=== PATIENT | female | born 1935 | race Caucasian/White ===

== ENCOUNTER 2022-02-16 21:57 | Inpatient (IN) | payer MEDICARE ==
[~2022-02-16] VITALS: Ht 152.4 cm; Wt 54.5 kg
[2022-02-16] MEDS ORDERED: LISI40TA13 PO (22:29)
[2022-02-16] MEDS ORDERED: SIMV-42 PO (22:29)
[2022-02-16] MEDS ORDERED: CLOP75TA34 PO (22:29)
[2022-02-16] MEDS ORDERED: HYDR12.55 PO (22:29)
[2022-02-16] MEDS ORDERED: ASPI-1265 PO (22:29)
[2022-02-16] MEDS ORDERED: mag hydrox/Alum hydrox/simeth 30ml oral suspension PO PRN (23:55)
[2022-02-16] MEDS ORDERED: magnesium Cl slow-release 64mg tablet PO PRN (23:55)
[2022-02-16] MEDS ORDERED: acetaminophen 325mg tablet PO PRN (23:55)
[2022-02-16] MEDS ORDERED: magnesium hydroxide 30ml (MOM) UD suspension PO PRN (23:55)
[2022-02-16] MEDS ORDERED: magnesium 2GM in 50ml NS 50 ML IV PRN (23:55)
[2022-02-16] MEDS ORDERED: POTASSIUM BICARB 20meq eff tab 20 MEQ TABLET.EFF PO PRN ×2 (23:55)
[2022-02-16] MEDS ORDERED: magnesium 4gm in 100ml NS 100 ML IV PRN (23:55)
[2022-02-16] MEDS ORDERED: ondansetron/PF 4mg/2ml inj IV PRN (23:55)
[2022-02-16] MEDS ORDERED: potassium CL 10mEq/100ml bag 100 ML IV PRN (23:55)
[2022-02-17] VITALS (15 sets, daily range): BP systolic 129–160; BP diastolic 38–108
[2022-02-17] MEDS ORDERED: cloNIDine 0.1 mg tablet PO PRN (00:05)
[2022-02-17] MEDS: dextrose 5%-1/2 normal saline 1,000 ML IV SCH ×2 (00:54→11:43)
--- NOTE | 2022-02-17 01:09 | NUR ---
PT HAD A 10 SECOND SYNCOPAL EDISODE. NOTIFIED ER .
[2022-02-17 01:39] LABS: BASOPHILS % (AUTO) 0.3 % (0-1); EOSINOPHILS % (AUTO) 0.2 % (0-6); HEMATOCRIT 25.2 % (35.0-45.0); HEMOGLOBIN 8.5 g/dl (12.0-16.0); LYMPHOCYTES # (AUTO) 1.4 X10'3 (1.1-4.8); LYMPHOCYTES % (AUTO) 22.3 % (21-51); MEAN CORPUSCULAR HEMOGLOBIN 29.4 PG (27.0-31.0); MEAN CORPUSCULAR HGB CONC 33.7 g/dL (33.0-36.5); MEAN CORPUSCULAR VOLUME 87.2 FL (78-98); MEAN PLATELET VOLUME 9.7 FL (7.4-10.4); MONOCYTES # (AUTO) 0.5 X10'3 (0-0.9); MONOCYTES % (AUTO) 7.6 % (2-12); NEUTROPHILS # (AUTO) 4.4 X10'3 (1.8-7.7); NEUTROPHILS % (AUTO) 69.6 % (42-75); PLATELET COUNT 169 X10'3 (140-440); RED CELL DISTRIBUTION WIDTH 14.6 % (11.5-14.5); WHITE BLOOD COUNT 6.3 X10'3 (4.5-11.0)
[2022-02-17 01:51] LABS: ALANINE AMINOTRANSFERASE 13 U/L (12-78); ALBUMIN 3.5 G/DL (3.4-5.0); ALBUMIN/GLOBULIN RATIO 0.9 (1.1-1.5); ALKALINE PHOSPHATASE 75 IU/L (46-116); ANION GAP 12 (8-16); ASPARTATE AMINO TRANSFERASE 19 U/L (10-37); BILIRUBIN,TOTAL 0.6 MG/DL (0.1-1.0); BLOOD UREA NITROGEN 30 MG/DL (7-18); BUN/CREATININE RATIO 22.7 (6.6-38.0); CALCIUM 9.1 MG/DL (8.5-10.1); CHLORIDE 107 MMOL/L (99-107); CREATININE 1.32 MG/DL (0.40-0.90); GLUCOSE 109 MG/DL (70-104); POTASSIUM 3.9 MMOL/L (3.5-5.1); SODIUM 142 MMOL/L (135-145); TOTAL CARBON DIOXIDE 23.1 MMOL/L (24-32); TOTAL PROTEIN 7.5 G/DL (6.4-8.2); eGFR 38 ML/MIN
[2022-02-17 01:54] LABS: MAGNESIUM 2.1 MG/DL (1.5-2.4)
--- NOTE | 2022-02-17 03:14 | NUR ---
PT HAD A CARDIAC PAUSE THAT LASTED ABOUT 4 SECONDS, PT WAS UNRESPONSIVE. ER AWARE.
[2022-02-17] MEDS ORDERED: normal saline 500ml IV soln 500 ML IV ONE (03:25)
[2022-02-17] MEDS: K and/or MAG REPLACEMENT MC SCH ×2 (07:15→20:00)
[2022-02-17] MEDS: docusate sod 100mg capsule PO SCH ×2 (08:00→21:25)
[2022-02-17] MEDS: enoxaparin 40mg/0.4ml syringe SUBCUT SCH (08:00)
--- NOTE | 2022-02-17 10:00 | NUR ---
Attempted to call Report on pt. RN is discharging a patient right now and will call back when available.
[2022-02-17] MEDS ORDERED: DOPamine 400mg/D5W 250ml 250 ML IV SCH (11:05)
--- NOTE | 2022-02-17 11:22 | NUR ---
Pt received on gurorlando from ed. She was able to move from gurney to bed with SOB but no pain. VSS with HR of 41. Dr Young has been called and got order for dopamine 2mcg and pacemaker surgery this afternoon.
[2022-02-17] MEDS ORDERED: midazolam 1 mg/ML 2ml injection ONE (18:20)
[2022-02-17] MEDS ORDERED: fentaNYL/PF 50MCG/1 ML 2ML syringe ONE (18:20)
[2022-02-17] MEDS ORDERED: ceFAZolin 1000mg inj ONE (18:21)
[2022-02-17] MEDS ORDERED: LIDOCAINE 2% w/EPI 1:100:000 30mL injection MDV**cath lab 1 only ONE (18:21)
[2022-02-17] MEDS ORDERED: Cefazolin 2GM/100ML NS IVPB 100 ML IV ONE (18:25)
[2022-02-17] MEDS ORDERED: cefazolin/dext.iso 2gm/100ml 100 ML IV ONE (18:39)
[2022-02-17] MEDS ORDERED: HYDROcodone/acetaminophen 5mg/325mg tablet PO PRN (19:55)
[2022-02-17] MEDS ORDERED: normal saline 500ml IV soln 500 ML IV SCH (19:55)
[2022-02-18] VITALS (8 sets, daily range): BP systolic 110–185; BP diastolic 47–140
[2022-02-18] MEDS: ceFAZolin/D5W- 1GM premix 50 ML IV SCH ×2 (00:35→09:18)
--- NOTE | 2022-02-18 06:15 | NUR ---
Patient in room PCU 3024. I have received report from Marguerite DURAN and had the opportunity to ask questions and assume patient care.
[2022-02-18 07:00] LABS: BASOPHILS % (AUTO) 0.3 % (0-1); EOSINOPHILS # (AUTO) 0.1 X10'3 (0-0.9); EOSINOPHILS % (AUTO) 1.2 % (0-6); HEMATOCRIT 23.6 % (35.0-45.0); HEMOGLOBIN 7.8 g/dl (12.0-16.0); LYMPHOCYTES # (AUTO) 1.1 X10'3 (1.1-4.8); LYMPHOCYTES % (AUTO) 13.4 % (21-51); MEAN CORPUSCULAR HEMOGLOBIN 29.2 PG (27.0-31.0); MEAN CORPUSCULAR HGB CONC 33.1 g/dL (33.0-36.5); MEAN CORPUSCULAR VOLUME 88.3 FL (78-98); MEAN PLATELET VOLUME 10.1 FL (7.4-10.4); MONOCYTES # (AUTO) 0.5 X10'3 (0-0.9); MONOCYTES % (AUTO) 6.8 % (2-12); NEUTROPHILS # (AUTO) 6.3 X10'3 (1.8-7.7); NEUTROPHILS % (AUTO) 78.3 % (42-75); PLATELET COUNT 156 X10'3 (140-440); RED BLOOD COUNT 2.67 X10'6 (4.20-5.60); RED CELL DISTRIBUTION WIDTH 14.8 % (11.5-14.5)
[2022-02-18 07:24] LABS: ALANINE AMINOTRANSFERASE 12 U/L (12-78); ALBUMIN/GLOBULIN RATIO 0.8 (1.1-1.5); ALKALINE PHOSPHATASE 65 IU/L (46-116); ANION GAP 12 (8-16); ASPARTATE AMINO TRANSFERASE 23 U/L (10-37); BILIRUBIN,TOTAL 0.4 MG/DL (0.1-1.0); BLOOD UREA NITROGEN 28 MG/DL (7-18); BUN/CREATININE RATIO 23.3 (6.6-38.0); CALCIUM 8.3 MG/DL (8.5-10.1); CHLORIDE 109 MMOL/L (99-107); GLUCOSE 88 MG/DL (70-104); SODIUM 144 MMOL/L (135-145); TOTAL PROTEIN 6.6 G/DL (6.4-8.2); eGFR 42 ML/MIN
--- NOTE | 2022-02-18 07:29 | NUR ---
PAGER ID: [phone] MESSAGE: [phone] Shannan Mc: Dopamine drip still active order (Not running) I assume you want this DC'd? Just want to make sure. [facility] [id number]
--- NOTE | 2022-02-18 07:29 | NUR ---
Non-Admin for NS and cefazolin - According to chart -administered post surg on different floor.
[2022-02-18] MEDS: K and/or MAG REPLACEMENT MC SCH ×2 (07:34→19:47)
[2022-02-18] MEDS: docusate sod 100mg capsule PO SCH ×2 (09:17→19:59)
[2022-02-18] MEDS: enoxaparin 40mg/0.4ml syringe SUBCUT SCH (09:18)
--- NOTE | 2022-02-18 11:39 | NUR ---
PAGER ID: [phone] MESSAGE: [phone] Shannan Mc: PT cleared patient for DC if she has help at home, but patient said she is not ready to go and does not have help at home until grand daughter gets here from [place]. Aisha BILL
[2022-02-18] MEDS: HYDROcodone/acetaminophen 5mg/325mg tablet PO PRN ×2 (15:41→20:00)
--- NOTE | 2022-02-18 18:21 | NUR ---
Patient in room [facility] 3024A. I have received report from DUANE Leonard and had the opportunity to ask questions and assume patient care. Addendum: 02/19/22 at 0620 by Reyna Lewis RN Room 302 Patient in room [facility] 302. I have received report from DUANE Leonard and had the opportunity to ask questions and assume patient care.
[2022-02-18] MEDS: dextrose 5%-1/2 normal saline 1,000 ML IV SCH (19:46)
[2022-02-19 02:00] VITALS: BP 138/67
--- NOTE | 2022-02-19 06:19 | NUR ---
Problems reprioritized. Patient report given, questions answered & plan of care reviewed with DUANE Leonard.
[2022-02-19] MEDS: docusate sod 100mg capsule PO SCH ×2 (06:53→20:00)
[2022-02-19] MEDS: enoxaparin 30mg/0.3ml syringe SUBCUT SCH (06:53)
[2022-02-19] MEDS: HYDROcodone/acetaminophen 5mg/325mg tablet PO PRN ×2 (06:53→12:27)
[2022-02-19 06:59] LABS: BASOPHILS % (AUTO) 0.2 % (0-1); EOSINOPHILS % (AUTO) 0.5 % (0-6); HEMATOCRIT 23.6 % (35.0-45.0); HEMOGLOBIN 7.8 g/dl (12.0-16.0); LYMPHOCYTES # (AUTO) 1.2 X10'3 (1.1-4.8); LYMPHOCYTES % (AUTO) 14.1 % (21-51); MEAN CORPUSCULAR HGB CONC 33.1 g/dL (33.0-36.5); MEAN CORPUSCULAR VOLUME 87.6 FL (78-98); MEAN PLATELET VOLUME 10.1 FL (7.4-10.4); MONOCYTES # (AUTO) 0.8 X10'3 (0-0.9); MONOCYTES % (AUTO) 9.2 % (2-12); NEUTROPHILS # (AUTO) 6.5 X10'3 (1.8-7.7); PLATELET COUNT 157 X10'3 (140-440); RED BLOOD COUNT 2.69 X10'6 (4.20-5.60); RED CELL DISTRIBUTION WIDTH 14.9 % (11.5-14.5); WHITE BLOOD COUNT 8.5 X10'3 (4.5-11.0)
[2022-02-19 07:00] VITALS: BP 177/71
[2022-02-19 07:43] LABS: ALANINE AMINOTRANSFERASE 8 U/L (12-78); ALBUMIN/GLOBULIN RATIO 0.7 (1.1-1.5); ALKALINE PHOSPHATASE 65 IU/L (46-116); ANION GAP 12 (8-16); ASPARTATE AMINO TRANSFERASE 21 U/L (10-37); BILIRUBIN,TOTAL 0.6 MG/DL (0.1-1.0); BLOOD UREA NITROGEN 28 MG/DL (7-18); CALCIUM 8.8 MG/DL (8.5-10.1); CHLORIDE 108 MMOL/L (99-107); CREATININE 1.12 MG/DL (0.40-0.90); GLUCOSE 110 MG/DL (70-104); POTASSIUM 3.9 MMOL/L (3.5-5.1); SODIUM 143 MMOL/L (135-145); TOTAL CARBON DIOXIDE 23.4 MMOL/L (24-32); TOTAL PROTEIN 7.1 G/DL (6.4-8.2); eGFR 46 ML/MIN
[2022-02-19] MEDS: K and/or MAG REPLACEMENT MC SCH ×2 (08:00→18:58)
[2022-02-19 11:00] VITALS: BP 159/71
[2022-02-19 15:00] VITALS: BP 131/69
[2022-02-19 18:00] VITALS: BP 133/51
[2022-02-19 22:00] VITALS: BP 179/101
[2022-02-20] VITALS (7 sets, daily range): BP systolic 108–181; BP diastolic 57–82
[2022-02-20] MEDS: HYDROcodone/acetaminophen 10/325mg tab PO PRN ×3 (01:40→17:47)
[2022-02-20 06:02] LABS: BASOPHILS % (AUTO) 0.2 % (0-1); EOSINOPHILS % (AUTO) 0.3 % (0-6); HEMATOCRIT 24.9 % (35.0-45.0); HEMOGLOBIN 8.4 g/dl (12.0-16.0); LYMPHOCYTES # (AUTO) 1.2 X10'3 (1.1-4.8); LYMPHOCYTES % (AUTO) 11.1 % (21-51); MEAN CORPUSCULAR HEMOGLOBIN 29.6 PG (27.0-31.0); MEAN CORPUSCULAR HGB CONC 33.5 g/dL (33.0-36.5); MEAN CORPUSCULAR VOLUME 88.3 FL (78-98); MONOCYTES # (AUTO) 0.8 X10'3 (0-0.9); MONOCYTES % (AUTO) 7.6 % (2-12); NEUTROPHILS # (AUTO) 8.7 X10'3 (1.8-7.7); NEUTROPHILS % (AUTO) 80.8 % (42-75); PLATELET COUNT 144 X10'3 (140-440); RED BLOOD COUNT 2.82 X10'6 (4.20-5.60); RED CELL DISTRIBUTION WIDTH 15.2 % (11.5-14.5); WHITE BLOOD COUNT 10.7 X10'3 (4.5-11.0)
[2022-02-20 06:17] LABS: ALANINE AMINOTRANSFERASE 7 U/L (12-78); ALBUMIN 2.9 G/DL (3.4-5.0); ALBUMIN/GLOBULIN RATIO 0.7 (1.1-1.5); ALKALINE PHOSPHATASE 60 IU/L (46-116); ANION GAP 11 (8-16); ASPARTATE AMINO TRANSFERASE 16 U/L (10-37); BILIRUBIN,TOTAL 0.6 MG/DL (0.1-1.0); BLOOD UREA NITROGEN 34 MG/DL (7-18); CALCIUM 8.5 MG/DL (8.5-10.1); CHLORIDE 105 MMOL/L (99-107); CREATININE 1.26 MG/DL (0.40-0.90); GLUCOSE 118 MG/DL (70-104); MAGNESIUM 1.9 MG/DL (1.5-2.4); POTASSIUM 3.7 MMOL/L (3.5-5.1); SODIUM 139 MMOL/L (135-145); TOTAL CARBON DIOXIDE 23.3 MMOL/L (24-32); TOTAL PROTEIN 7.1 G/DL (6.4-8.2); eGFR 40 ML/MIN
--- NOTE | 2022-02-20 06:30 | NUR ---
Patient in room PCU 3024. I have received report from Clara ZEPEDA and had the opportunity to ask questions and assume patient care.
[2022-02-20] MEDS: K and/or MAG REPLACEMENT MC SCH ×2 (08:00→19:24)
[2022-02-20] MEDS: enoxaparin 30mg/0.3ml syringe SUBCUT SCH (08:48)
[2022-02-20] MEDS: docusate sod 100mg capsule PO SCH ×2 (08:48→19:29)
[2022-02-21] VITALS (10 sets, daily range): BP systolic 91–156; BP diastolic 48–88
[2022-02-21 06:10] LABS: BASOPHILS % (AUTO) 0.2 % (0-1); EOSINOPHILS # (AUTO) 0.1 X10'3 (0-0.9); EOSINOPHILS % (AUTO) 0.9 % (0-6); LYMPHOCYTES # (AUTO) 1.1 X10'3 (1.1-4.8); LYMPHOCYTES % (AUTO) 12.3 % (21-51); MEAN CORPUSCULAR HEMOGLOBIN 28.9 PG (27.0-31.0); MEAN CORPUSCULAR HGB CONC 33.4 g/dL (33.0-36.5); MEAN CORPUSCULAR VOLUME 86.6 FL (78-98); MEAN PLATELET VOLUME 9.9 FL (7.4-10.4); MONOCYTES # (AUTO) 0.8 X10'3 (0-0.9); MONOCYTES % (AUTO) 8.8 % (2-12); NEUTROPHILS # (AUTO) 6.6 X10'3 (1.8-7.7); NEUTROPHILS % (AUTO) 77.8 % (42-75); PLATELET COUNT 155 X10'3 (140-440); RED BLOOD COUNT 2.42 X10'6 (4.20-5.60); RED CELL DISTRIBUTION WIDTH 15.5 % (11.5-14.5); WHITE BLOOD COUNT 8.5 X10'3 (4.5-11.0)
[2022-02-21 06:17] LABS: HEMATOCRIT 20.9 % (35.0-45.0)
[2022-02-21 06:28] LABS: ALANINE AMINOTRANSFERASE 8 U/L (12-78); ALBUMIN 2.6 G/DL (3.4-5.0); ALBUMIN/GLOBULIN RATIO 0.6 (1.1-1.5); ALKALINE PHOSPHATASE 58 IU/L (46-116); ANION GAP 10 (8-16); ASPARTATE AMINO TRANSFERASE 19 U/L (10-37); BILIRUBIN,TOTAL 0.7 MG/DL (0.1-1.0); BLOOD UREA NITROGEN 40 MG/DL (7-18); BUN/CREATININE RATIO 29.4 (6.6-38.0); CALCIUM 8.9 MG/DL (8.5-10.1); CHLORIDE 104 MMOL/L (99-107); CREATININE 1.36 MG/DL (0.40-0.90); GLUCOSE 98 MG/DL (70-104); POTASSIUM 3.8 MMOL/L (3.5-5.1); SODIUM 137 MMOL/L (135-145); TOTAL PROTEIN 6.9 G/DL (6.4-8.2); eGFR 37 ML/MIN
[2022-02-21] MEDS: enoxaparin 30mg/0.3ml syringe SUBCUT SCH (08:00)
[2022-02-21] MEDS: K and/or MAG REPLACEMENT MC SCH ×2 (08:00→20:00)
[2022-02-21] MEDS: docusate sod 100mg capsule PO SCH (09:37)
[2022-02-21] MEDS: HYDROcodone/acetaminophen 5mg/325mg tablet PO PRN (09:37)
--- NOTE | 2022-02-21 10:02 | NUR ---
PAGER ID: [phone] MESSAGE: Shannan Mc [id number] Critical H&H 7.0 and 20.9. Do you want me to hold Lovenox today? or administer? Thank you Sahra [id number]
--- NOTE | 2022-02-21 10:08 | NUR ---
rounding on floor. States ok to hold Lovenox.
--- NOTE | 2022-02-21 14:30 | NUR ---
PAGER ID: [phone] MESSAGE: Shannan Mc [phone] Need blood consent if you want me to give blood. Thank you. Sahra [id number]
[2022-02-21 15:43] LABS: % IRON SATURATION 9 % (11-46); IRON 26 UG/DL (49-151); TOTAL IRON BINDING CAPACITY 293 UG/DL (259-388)
[2022-02-21] MEDS: HYDROcodone/acetaminophen 10/325mg tab PO PRN (17:27)
--- NOTE | 2022-02-21 18:18 | NUR ---
Gave report to Clara ZEPEDA.
[2022-02-21] MEDS: atorvastatin 10mg tablet PO SCH (21:14)
[2022-02-22 02:00] VITALS: BP 122/62
[2022-02-22 06:00] VITALS: BP 130/66
[2022-02-22 06:54] LABS: BASOPHILS % (AUTO) 0.3 % (0-1); EOSINOPHILS # (AUTO) 0.2 X10'3 (0-0.9); EOSINOPHILS % (AUTO) 2.3 % (0-6); HEMATOCRIT 25.8 % (35.0-45.0); HEMOGLOBIN 8.8 g/dl (12.0-16.0); LYMPHOCYTES # (AUTO) 1.2 X10'3 (1.1-4.8); MEAN CORPUSCULAR HGB CONC 34.1 g/dL (33.0-36.5); MEAN PLATELET VOLUME 10.1 FL (7.4-10.4); MONOCYTES # (AUTO) 0.7 X10'3 (0-0.9); MONOCYTES % (AUTO) 9.6 % (2-12); NEUTROPHILS # (AUTO) 5.6 X10'3 (1.8-7.7); NEUTROPHILS % (AUTO) 72.8 % (42-75); PLATELET COUNT 172 X10'3 (140-440); RED BLOOD COUNT 2.93 X10'6 (4.20-5.60); RED CELL DISTRIBUTION WIDTH 15.4 % (11.5-14.5); WHITE BLOOD COUNT 7.7 X10'3 (4.5-11.0)
[2022-02-22 07:34] LABS: ALANINE AMINOTRANSFERASE 11 U/L (12-78); ALBUMIN 2.6 G/DL (3.4-5.0); ALBUMIN/GLOBULIN RATIO 0.6 (1.1-1.5); ALKALINE PHOSPHATASE 62 IU/L (46-116); ANION GAP 9 (8-16); ASPARTATE AMINO TRANSFERASE 24 U/L (10-37); BILIRUBIN,TOTAL 1.1 MG/DL (0.1-1.0); BLOOD UREA NITROGEN 49 MG/DL (7-18); CALCIUM 8.8 MG/DL (8.5-10.1); CHLORIDE 103 MMOL/L (99-107); CREATININE 1.36 MG/DL (0.40-0.90); GLUCOSE 100 MG/DL (70-104); POTASSIUM 4.2 MMOL/L (3.5-5.1); SODIUM 134 MMOL/L (135-145); TOTAL PROTEIN 7.1 G/DL (6.4-8.2); eGFR 37 ML/MIN
[2022-02-22] MEDS: HYDROcodone/acetaminophen 10/325mg tab PO PRN (07:59)
[2022-02-22] MEDS: K and/or MAG REPLACEMENT MC SCH ×2 (08:00→19:59)
--- NOTE | 2022-02-22 08:45 | NUR ---
Initial: Pt admitted w/ complete heart block, received pacemaker this admit, and anemia per EMR. Currently on Heart Healthy diet w/ ~50% PO intake recently, meeting est nutrient needs at this time. LBM 02/17 receiving PRN bowel care. No nutrition intervention implemented at this time, will continue to monitor. Recs: 1. Liberalize to Regular diet given no significant diet-related cardiac hx and geriatric age 2. Routine bowel care 3. Weekly wts Addendum: 02/22/22 at [address] Amended: Links added.
[2022-02-22] MEDS ORDERED: LISI10TA27 PO (10:33)
[2022-02-22] MEDS ORDERED: FERR324T4 PO (10:33)
--- NOTE | 2022-02-22 11:15 | NUR ---
PAGER ID: [phone] MESSAGE: Shannan Mc [id number] Facility will not accept pt. w/o having a BM. Please order suppository. MOM not effective. Sahra [id number]
[2022-02-22] MEDS ORDERED: bisacodyl 5mg tablet.DR PO ONE (11:25)
[2022-02-22 11:52] VITALS: BP 141/69
--- NOTE | 2022-02-22 12:20 | NUR ---
Gave report to Mariaelena DURAN at [facility]. She is requesting pt. be transfer in as late as possible due to her getting other admits. Also pt has not had a BM since 02/17. Both Dr. Yusuf and Sugar in [facility]m aware. Requested suppository from hospitalist. Oral Dulcolax ordered and administered. P/u time of 1400. Will update facility of outcome.
[2022-02-22] MEDS ORDERED: bisacodyl 10mg suppository rectal RC STA (12:57)
--- NOTE | 2022-02-22 14:21 | NUR ---
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 Pt. aware.
[2022-02-22 15:54] VITALS: BP 145/66
[2022-02-22 16:16] LABS: OCCULT BLOOD STOOL POSITIVE (Neg)
--- NOTE | 2022-02-22 16:22 | NUR ---
PAGER ID: [phone] MESSAGE: Shannan Mc [id number] Pt's occult positive. Want me to discharge...still? Sahra 1978
[2022-02-22] MEDS ORDERED: PEG 3350/Na sulf,bicarb,Cl/KCl oral sol 4 liter bottle PO ONE (16:40)
--- NOTE | 2022-02-22 18:10 | NUR ---
Checked omnicells and no bowel prep yet.
--- NOTE | 2022-02-22 18:34 | NUR ---
Gave report to Clara ZEPEDA.
[2022-02-22] MEDS: pantoprazole 40mg Tablet.DR PO SCH (20:23)
[2022-02-22] MEDS: atorvastatin 10mg tablet PO SCH (20:23)
[2022-02-23] VITALS (13 sets, daily range): BP systolic 97–170; BP diastolic 50–104
--- NOTE | 2022-02-23 05:35 | NUR ---
patient finished all Bowel prep at aprox 0500. continues to have liquid, dark stool
--- NOTE | 2022-02-23 06:40 | NUR ---
Patient in room PCU 3024. I have received report from DUANE Elizabeth and had the opportunity to ask questions and assume patient care.
[2022-02-23] MEDS: pantoprazole 40mg Tablet.DR PO SCH ×2 (08:00→20:55)
[2022-02-23 09:52] LABS: BASOPHILS % (AUTO) 0.3 % (0-1); EOSINOPHILS # (AUTO) 0.1 X10'3 (0-0.9); HEMATOCRIT 29.7 % (35.0-45.0); HEMOGLOBIN 9.9 g/dl (12.0-16.0); LYMPHOCYTES # (AUTO) 0.9 X10'3 (1.1-4.8); LYMPHOCYTES % (AUTO) 13.3 % (21-51); MEAN CORPUSCULAR HEMOGLOBIN 29.4 PG (27.0-31.0); MEAN CORPUSCULAR HGB CONC 33.3 g/dL (33.0-36.5); MEAN CORPUSCULAR VOLUME 88.3 FL (78-98); MEAN PLATELET VOLUME 9.3 FL (7.4-10.4); MONOCYTES # (AUTO) 0.7 X10'3 (0-0.9); MONOCYTES % (AUTO) 10.4 % (2-12); NEUTROPHILS # (AUTO) 5.3 X10'3 (1.8-7.7); PLATELET COUNT 208 X10'3 (140-440); RED BLOOD COUNT 3.36 X10'6 (4.20-5.60); RED CELL DISTRIBUTION WIDTH 15.8 % (11.5-14.5); WHITE BLOOD COUNT 7.1 X10'3 (4.5-11.0)
[2022-02-23 09:58] LABS: ALBUMIN 2.7 G/DL (3.4-5.0); ANION GAP 13 (8-16); BLOOD UREA NITROGEN 46 MG/DL (7-18); CALCIUM 8.7 MG/DL (8.5-10.1); CHLORIDE 102 MMOL/L (99-107); CREATININE 1.15 MG/DL (0.40-0.90); GLUCOSE 110 MG/DL (70-104); POTASSIUM 4.3 MMOL/L (3.5-5.1); SODIUM 139 MMOL/L (135-145); TOTAL CARBON DIOXIDE 24.1 MMOL/L (24-32); eGFR 45 ML/MIN
[2022-02-23] MEDS: K and/or MAG REPLACEMENT MC SCH ×2 (10:06→20:00)
[2022-02-23] MEDS ORDERED: fentaNYL/PF 50MCG/1 ML 2ML syringe ONE (10:41)
[2022-02-23] MEDS ORDERED: MIDAZolam 1 MG/ML 5ML VIAL ONE (10:41)
[2022-02-23] MEDS ORDERED: LIDOcaine Viscous 15ml cup ONE (10:41)
[2022-02-23] MEDS: lisinopril 10 MG tablet PO SCH (16:16)
--- NOTE | 2022-02-23 18:50 | NUR ---
Problems reprioritized. Patient report given, questions answered & plan of care reviewed with DUANE Humphrey.
[2022-02-23] MEDS: atorvastatin 10mg tablet PO SCH (20:55)
[2022-02-24 02:00] VITALS: BP 145/64
[2022-02-24 06:00] VITALS: BP 152/67
--- NOTE | 2022-02-24 06:34 | NUR ---
Change of shift report given to DUANE French. Issues reprioritized. pt stable. No acute complaints
--- NOTE | 2022-02-24 06:43 | NUR ---
Patient in room PCU 3024. I have received report from Milagro ZEPEDA and had the opportunity to ask questions and assume patient care.
[2022-02-24] MEDS: HYDROcodone/acetaminophen 10/325mg tab PO PRN (09:06)
[2022-02-24] MEDS: lisinopril 10 MG tablet PO SCH (09:07)
[2022-02-24] MEDS: pantoprazole 40mg Tablet.DR PO SCH (09:08)
[2022-02-24 11:00] VITALS: BP 175/66
== END 2022-02-24 15:55 | DRG 242 ==
LOC: ER 21:58 → ED HOLD 02-17 → PCU 3S 02-17 11:24
PROVIDERS: ADMIT Internal Medicine; ATTEND Family Medicine
PROC: 0JH606Z Insertion of Pacemaker, Dual Chamber into Chest Subcutaneous Tissue and Fascia, Open Approach (ICD-10-PCS; principal; 2022-02-17)
PROC: 02H63JZ Insertion of Pacemaker Lead into Right Atrium, Percutaneous Approach (ICD-10-PCS; 2022-02-17)
PROC: 02HK3JZ Insertion of Pacemaker Lead into Right Ventricle, Percutaneous Approach (ICD-10-PCS; 2022-02-17)
PROC: 30233N1 Transfusion of Nonautologous Red Blood Cells into Peripheral Vein, Percutaneous Approach (ICD-10-PCS; 2022-02-21)
PROC: 0DJ08ZZ Inspection of Upper Intestinal Tract, Via Natural or Artificial Opening Endoscopic (ICD-10-PCS; 2022-02-23)
PROC: 0DJD8ZZ Inspection of Lower Intestinal Tract, Via Natural or Artificial Opening Endoscopic (ICD-10-PCS; 2022-02-23)
DX: I44.2 Atrioventricular block, complete (principal); N17.0 Acute kidney failure with tubular necrosis; I10 Essential (primary) hypertension; S00.83XA Contusion of other part of head, initial encounter; Z20.822 Contact with and (suspected) exposure to COVID-19; D50.9 Iron deficiency anemia, unspecified; W18.39XA Other fall on same level, initial encounter; K57.30 Diverticulosis of large intestine without perforation or abscess without bleeding; K44.9 Diaphragmatic hernia without obstruction or gangrene; Z79.02 Long term (current) use of antithrombotics/antiplatelets; Z90.710 Acquired absence of both cervix and uterus; Z95.2 Presence of prosthetic heart valve; Z98.42 Cataract extraction status, left eye; Z98.41 Cataract extraction status, right eye; Y93.89 Activity, other specified; Y92.89 Other specified places as the place of occurrence of the external cause; Y99.8 Other external cause status; Z79.899 Other long term (current) drug therapy; Z79.82 Long term (current) use of aspirin; Z90.49 Acquired absence of other specified parts of digestive tract
CPT/HCPCS: 33208; 36415; 36430; 43235; 45378; 70450; 71045; 80048; 80053; 82272; 83540; 83550; 83735; 84484; 85025; 85610; 86885; 86900; 86901; 86920; 87081; 87635; 93005; 93306; 97116; 97162; 97530; 97535; 99152; 99153; 99285; A4565; A4615; A4620; A6258; C1785; G0378; J0690; J1265; J1650; J2250; J3010; J3490; J7030; J7040; J7042; P9016